=== PATIENT | female | born 1955 | race Caucasian/White ===

== ENCOUNTER 2020-08-29 12:05 | Emergency (ER) | payer OTHER ==
[2020-08-29 12:16] VITALS: BP 134/81; PULSE 72; TEMP 98; BMI 20.9
== END 2020-08-29 13:00 | disposition home or self-care (01) ==
LOC: FER 12:05
DX: S00.06XA Insect bite (nonvenomous) of scalp, initial encounter (principal)
CPT/HCPCS: 99281-25

== ENCOUNTER 2020-11-19 10:03 | Day surgery (SDC) | payer OTHER ==
[2020-11-14 11:22] VITALS: BMI 20.7
[2020-11-19 10:39] VITALS: TEMP 97.9
[2020-11-19 12:09] VITALS: BP 103/57; PULSE 60
== END 2020-11-19 12:00 | disposition home or self-care (01) ==
LOC: FASU-ENDO 10:03
PROVIDERS: ATTEND Internal Medicine Gastroenterology
PROC: 0DBP8ZX Excision of Rectum, Via Natural or Artificial Opening Endoscopic, Diagnostic (ICD-10-PCS; 2020-11-19)
PROC: 0DBN8ZX Excision of Sigmoid Colon, Via Natural or Artificial Opening Endoscopic, Diagnostic (ICD-10-PCS; principal; 2020-11-19 10:54)
DX: Z85.048 Personal history of other malignant neoplasm of rectum, rectosigmoid junction, and anus (principal); D12.4 Benign neoplasm of descending colon

== ENCOUNTER 2021-01-12 13:54 | Emergency (ER) | payer OTHER ==
[2021-01-12 14:17] VITALS: BP 100/64; PULSE 80; TEMP 98.6; BMI 20.7
[2021-01-12] MEDS ORDERED: IBUPROFEN 400 MG TABLET (FP) PO ONE ×2 (15:43→15:50)
[2021-01-12] MEDS ORDERED: LIDOCAINE 5% TOPICAL PATCH TP ONE (16:30)
[2021-01-12] MEDS ORDERED: LIDOCAINE 5% TOPICAL PATCH ONE (16:32)
[2021-01-12] MEDS ORDERED: LIDOCAINE PATCH REMOVAL MC SCH (22:00)
== END 2021-01-12 16:36 | disposition home or self-care (01) ==
LOC: FER 13:54
DX: T14.8XXA Other injury of unspecified body region, initial encounter (principal)
CPT/HCPCS: 73502-TC-RT-FY; 73523-TC-FY; 99284-25

== ENCOUNTER 2023-04-06 10:53 | Day surgery (SDC) | payer OTHER ==
[2023-04-05 14:24] VITALS: BMI 22.9
[2023-04-06 14:25] VITALS: TEMP 98
[2023-04-06 14:29] VITALS: BP 103/48; PULSE 76; RESP 19
== END 2023-04-06 13:45 | disposition home or self-care (01) ==
LOC: FASU-ENDO 10:53
PROVIDERS: ATTEND Internal Medicine Gastroenterology
PROC: 0DBP8ZX Excision of Rectum, Via Natural or Artificial Opening Endoscopic, Diagnostic (ICD-10-PCS; principal; 2023-04-06 12:52)
DX: Z12.11 Encounter for screening for malignant neoplasm of colon (principal); Z85.048 Personal history of other malignant neoplasm of rectum, rectosigmoid junction, and anus; K64.0 First degree hemorrhoids; K63.89 Other specified diseases of intestine
CPT/HCPCS: 88305-TC

== ENCOUNTER 2023-11-05 12:33 | Emergency (ER) | payer OTHER ==
[2023-11-05 12:39] VITALS: BP 143/76; PULSE 58; RESP 17; TEMP 98; BMI 23.3
[2023-11-05] MEDS ORDERED: ACETAMINOPHEN 500 MG TABLET (FP) ONE (12:54)
[2023-11-05] MEDS: ACETAMINOPHEN 500 MG TABLET (FP) PO ONE (13:08)
[2023-11-05] MEDS ORDERED: KETOROLAC TROMETHAMINE 30 MG/1 ML VIAL ONE (16:12)
[2023-11-05] MEDS: KETOROLAC TROMETHAMINE 30 MG/1 ML VIAL IM ONE (16:18)
== END 2023-11-05 17:34 | disposition home or self-care (01) ==
LOC: FER 12:33
PROC: 3E0133Z Introduction of Anti-inflammatory into Subcutaneous Tissue, Percutaneous Approach (ICD-10-PCS; principal; 2023-11-05)
DX: S06.0X0A Concussion without loss of consciousness, initial encounter (principal); R11.0 Nausea; R07.81 Pleurodynia; M25.512 Pain in left shoulder; R00.2 Palpitations; W01.198A Fall on same level from slipping, tripping and stumbling with subsequent striking against other object, initial encounter
CPT/HCPCS: 70450-TC; 71046-TC-FY; 72125-TC; 99284-25